=== PATIENT | female | born 1970 | race Caucasian/White ===

== ENCOUNTER → 2016-03-13 | Outpatient (CLI) | payer OTHER ==
[~2016-03-13] MED LIST: CONRAY-43 43% 50ML VIAL (Q9960) As Ordered ONE
--- NOTE | 2016-03-13 09:25 | REP ---
MR arthrography right shoulder: with pre- and post intra-articular gadolinium enhanced saline injected imaging: History: Right shoulder pain. No comparison radiographs. Technique: The injection procedure is performed and dictated separately. Pre and post intra-articular gadolinium enhanced saline injected imaging is acquired. Imaging planes include axial, oblique coronal, oblique sagittal and ABER projection images. T1 T2-weighted scans are included with and without fat saturation. MRI findings: Cortical and medullary bone signal intensity are normal. Glenohumeral and acromioclavicular joint alignment is normal. There is a subacromial subdeltoid bursal effusion on preinjection imaging. Subcortical cyst formation is seen in the superolateral humeral head on preinjection imaging. There is mild osteoarthritic hypertrophy at the AC joint. Preinjection imaging shows diffuse swelling and increased signal intensity in the supraspinatus tendon consistent with tendonitis tendinosis change. No focal cuff lesion is seen on preinjection imaging. There is some tendinosis in the distal subscapularis tendon as well. Post injection imaging shows good filling and enhancement of the glenohumeral articulation with some injection artifact medially. There is injection artifact in the proximal subscapularis tendon. Biceps tendon appears intact. Infraspinatus tendon is unremarkable. Postinjection T1-weighted fat sat oblique coronal images demonstrate some enhancement within the substance and on the synovial side of the supraspinatus tendon at approximately 11 o'clock on the humeral head on oblique coronal images. This is consistent with partial thickness supraspinatus synovial side cuff lesion. No superior labral tear is seen. No anterior or posterior labral disruption is appreciated. No loose body is seen. ABER images show no evidence of labral tear. Impression: Supraspinatus tendonitis tendinosis change with partial thickness synovial surface contrast enhancement on post injection T1-weighted scans. Subacromial subdeltoid bursal effusion. Minimal AC joint osteoarthritic hypertrophy. Signed by Ernesto Christine MD 03/13/2016 09:28 A
--- NOTE | 2016-03-13 14:44 | REP ---
Procedure: Right shoulder arthrogram The procedure was performed under the direct supervision of Dr. Christine. History: Right shoulder pain The benefits and risks including but not limited to pain, infection, bleeding and anaphylaxis were explained to the patient and informed consent was obtained. Technique: The right glenohumeral joint space was localized using fluoroscopic guidance. The skin was prepped and draped in a sterile fashion. 1% lidocaine was used as a local anesthetic. Using fluoroscopic guidance a 22 gauge spinal needle was inserted and advanced into the joint. 0.5 ml of Conray 43 was injected to verify placement. 11 ml of a solution containing 20 ml of sterile saline and 0.15 ml of ProHance was injected into the joint. The needle was removed and the patient was taken to MRI for postprocedural imaging. The the patient tolerated the procedure well and there were no immediate complications. Less than 1 second of fluoroscopy time was utilized for this procedure. Reviewed by NATALY Ivory 03/13/2016 12:07 PSigned by Ernesto Christine MD 03/13/2016 02:35 P
== END ==
LOC: M RADPRO 07:17
PROVIDERS: ATTEND Physician Assistant
DX: M25.511 Pain in right shoulder (principal); M25.411 Effusion, right shoulder; M65.811 Other synovitis and tenosynovitis, right shoulder
CPT/HCPCS: 23350; 73040; 73223; A9576; Q9960

== ENCOUNTER → 2024-02-12 | Outpatient (CLI) | payer BC | LOC: M RAD 09:51 | PROVIDERS: ATTEND Physician Assistant | DX: M51.362 Other intervertebral disc degeneration, lumbar region with discogenic back pain and lower extremity pain (principal) | CPT/HCPCS: 78315; A9503 ==